=== PATIENT | male | born 1955 | race Caucasian/White ===

== ENCOUNTER 2016-06-25 20:31 | Inpatient (IN) | payer OTHER ==
[~2016-06-25] VITALS: Ht 190.5 cm; Wt 91.1 kg
[2016-06-25] MEDS ORDERED: LOSARTAN POTAS100 MG PO (20:44)
[2016-06-25] MEDS ORDERED: SPIRIVA1 INHALATI IH (20:44)
[2016-06-25] MEDS ORDERED: QUINAPRIL HCL10 MG PO (20:44)
[2016-06-25] MEDS ORDERED: OMEPRAZOLE20 MG PO (20:57)
[2016-06-25] MEDS ORDERED: ALLER-TEC10 MG PO (20:57)
[2016-06-25] MEDS ORDERED: SYMBICORT60 INHALAT IH (20:58)
[2016-06-25] MEDS ORDERED: COMBIVENT RESPIM4 GM IH (20:58)
[2016-06-26] VITALS (7 sets, daily range): BP systolic 120–192; BP diastolic 71–107
[2016-06-26 00:35] LABS: EOSINOPHIL (%) 0 % (0-5); HEMATOCRIT 39.8 % (38.0-50.0); IMMATURE GRANULOCYTE (%) 0.6 % (0.0-0.7); IMMATURE GRANULOCYTE COUNT 0.8 K/uL; LYMPHOCYTE COUNT 0.7 K/uL (1.0-2.8); MCH 31.3 PG (29.0-34.0); MCHC 34.2 G/DL (30.0-36.0); MCV 91.7 FL (86-99); MONOCYTE (%) 5.7 % (3-12); MONOCYTE COUNT 0.8 K/uL (0-0.8); NEUTROPHIL (%) 89.1 % (45-76); NEUTROPHIL COUNT 12.9 K/uL (1.8-6.4); PLATELET COUNT 242 K/uL (156-360); RBC DIS.WIDTH-CV 12.4 % (11.8-14.6); RBC DIS.WIDTH-SD 40.6 % (39-53); RED BLOOD COUNT 4.34 M/uL (4.00-5.50); WHITE BLOOD COUNT 14.5 K/uL (4.1-10.2)
[2016-06-26 00:45] LABS: CHLORIDE 94 mEq/L (99-109); POTASSIUM 5.1 mEq/L (3.7-5.4); SODIUM 123 mEq/L (136-147)
[2016-06-26 00:47] LABS: GLUCOSE 121 mg/dL (70-99)
[2016-06-26 00:48] LABS: BASE EXCESS -8.9 mEq/L (-3 to +3); BICARBONATE 19.2 mEq/L (22-26); CARBOXY HGB 1.7 % (0-5); COMMENTS - BLOOD GASES C+A+; DEVICE NC; METHEMOGLOBIN 1.5 % (0-1.5); O2 FLOW 4 L/MIN; PCO2 49 mm Hg (35-45); PO2 108 mm Hg (80-100); SITE RR; TOTAL RESP RATE 16 resp/min
[2016-06-26 00:48] LABS: ANION GAP 11 MEQ/L (2-14)
[2016-06-26 00:49] LABS: TOTAL BILIRUBIN 0.4 mg/dL (0.0-1.0)
[2016-06-26 00:50] LABS: SERUM ETHYL ALCOHOL 125 mg/dL
[2016-06-26 00:51] LABS: ALKALINE PHOSPHATASE 95 IU/L (3-129); GFR ESTIMATE (CALCULATED) > 59 mL/min/
[2016-06-26 00:52] LABS: UREA NITROGEN (BUN) 11 mg/dL (9-23)
[2016-06-26 02:09] LABS: BASE EXCESS -9.7 mEq/L (-3 to +3); CARBOXY HGB 1.8 % (0-5); COMMENTS - BLOOD GASES C+A+; METHEMOGLOBIN 1.7 % (0-1.5); PCO2 45 mm Hg (35-45); PO2 94 mm Hg (80-100); SITE LR; pH 7.21 (7.35-7.45)
[2016-06-26 02:10] LABS: DEVICE NC; O2 FLOW 1 L/MIN; TOTAL RESP RATE 18 resp/min
[2016-06-26 02:27] LABS: TROP-I INTERPRETATION NEGATIVE; TROPONIN-I 0.02 ng/mL (0.0-0.30)
[2016-06-26 05:49] LABS: BASE EXCESS -9.7 mEq/L (-3 to +3); CARBOXY HGB 2.1 % (0-5); METHEMOGLOBIN 1.7 % (0-1.5); PCO2 45 mm Hg (35-45)
[2016-06-26 05:50] LABS: COMMENTS - BLOOD GASES A+C+; DEVICE NC; O2 FLOW 1 L/MIN; PO2 75 mm Hg (80-100); SITE LR
[2016-06-26 05:51] LABS: pH 7.21 (7.35-7.45)
[2016-06-26 09:29] LABS: TROP-I INTERPRETATION NEGATIVE; TROPONIN-I < 0.01 ng/mL (0.0-0.30)
[2016-06-26 10:07] LABS: HEMATOCRIT 38.1 % (38.0-50.0); MCH 31.9 PG (29.0-34.0); MCHC 34.1 G/DL (30.0-36.0); MCV 93.6 FL (86-99); MEAN PLAT.VOLUME 9.2 uM^3 (9.0-12.4); PLATELET COUNT 182 K/uL (156-360); RBC DIS.WIDTH-CV 12.8 % (11.8-14.6); RED BLOOD COUNT 4.07 M/uL (4.00-5.50); WHITE BLOOD COUNT 10.4 K/uL (4.1-10.2)
[2016-06-26 10:31] LABS: ALKALINE PHOSPHATASE 92 IU/L (3-129); ANION GAP 12 MEQ/L (2-14); CHLORIDE 95 MEQ/L (99-109); GFR ESTIMATE (CALCULATED) > 59 mL/min/; GLUCOSE 122 mg/dL (70-99); POTASSIUM 5.3 MEQ/L (3.7-5.4); SAMPLE HEMOLYSIS CHECK 0; SAMPLE ICTERIC CHECK 0; SAMPLE LIPEMIA CHECK 0; SODIUM 125 MEQ/L (136-147); TOTAL BILIRUBIN 0.8 MG/DL (0.0-1.0); UREA NITROGEN (BUN) 13 mg/dL (9-23)
[2016-06-26 15:46] LABS: INTER. NORMALIZED RATIO 1.1; PROTHROMBIN TIME 11.1 (9.2-11.2); PTT 29.4 (25-32)
[2016-06-27] VITALS (9 sets, daily range): BP systolic 96–138; BP diastolic 57–94
[2016-06-27 08:42] LABS: HEMATOCRIT 38.4 % (38.0-50.0); MCH 31.3 PG (29.0-34.0); MCHC 32.8 G/DL (30.0-36.0); MCV 95.3 FL (86-99); PLATELET COUNT 186 K/uL (156-360); RBC DIS.WIDTH-CV 12.8 % (11.8-14.6); RBC DIS.WIDTH-SD 44.4 % (39-53); RED BLOOD COUNT 4.03 M/uL (4.00-5.50); WHITE BLOOD COUNT 13.2 K/uL (4.1-10.2)
[2016-06-27 15:11] LABS: ANION GAP 11 MEQ/L (2-14); CHLORIDE 98 MEQ/L (99-109); GFR ESTIMATE (CALCULATED) > 59 mL/min/; GLUCOSE 110 mg/dL (70-99); POTASSIUM 5.7 MEQ/L (3.7-5.4); SAMPLE HEMOLYSIS CHECK 0; SAMPLE ICTERIC CHECK 0; SAMPLE LIPEMIA CHECK 0; SODIUM 128 MEQ/L (136-147); UREA NITROGEN (BUN) 14 mg/dL (9-23)
[2016-06-28] VITALS (23 sets, daily range): BP systolic 68–147; BP diastolic 51–98
[2016-06-28 02:43] LABS: BASE EXCESS -5.1 mEq/L (-3 to +3); BICARBONATE 24.3 mEq/L (22-26); CARBOXY HGB 2.7 % (0-5); PCO2 65 mm Hg (35-45); PO2 67 mm Hg (80-100); SITE RR; pH 7.18 (7.35-7.45)
[2016-06-28 02:44] LABS: COMMENTS - BLOOD GASES C+; DEVICE NC; O2 FLOW 4 L/MIN; TOTAL RESP RATE 26 resp/min
[2016-06-28 03:59] LABS: BASE EXCESS -5.7 mEq/L (-3 to +3); BICARBONATE 22.2 mEq/L (22-26); CARBOXY HGB 2.2 % (0-5); METHEMOGLOBIN 2.2 % (0-1.5)
[2016-06-28 04:00] LABS: COMMENTS - BLOOD GASES C+A+; DEVICE VENTILATOR; FI02 100 %; MECHANICAL RATE 18 resp/min; MODE A/C; PCO2 53 mm Hg (35-45); PEEP 5 CM/H20; PO2 483 mm Hg (80-100); SITE RR; TIDAL VOLUME 550 ML; TOTAL RESP RATE 18 resp/min; pH 7.23 (7.35-7.45)
[2016-06-28 04:03] LABS: ADD MIUA? YES; BILIRUBIN NEGATIVE; BLOOD SMALL; COLOR YELLOW ((YELLOW)); GLUCOSE (STRIP) NEGATIVE; KETONES 15; LEUKOCYTES NEGATIVE; NITRITE NEGATIVE; PH, URINE 5.5 (5-8); PROTEIN (STRIP) TRACE; SPECIFIC GRAVITY 1.018 (1.000-1.030); UROBILINOGEN 0.2 MG/DL (0.2-1.0)
[2016-06-28 04:26] LABS: BACTERIA RARE; CASTS NONE SEEN /LPF; CRYSTALS NONE SEEN; EPITHELIAL CELLS RARE; MUCUS NONE SEEN; RED BLOOD CELLS 0-5 /HPF (0-5); UCUL ADDED? NO; WHITE BLOOD CELLS 0-5 /HPF (0-5)
[2016-06-28 05:10] LABS: METH RESISTANT S AUREUS PCR NEGATIVE (NEGATIVE)
[2016-06-28 05:13] LABS: PROBE CHECK PASS; SPECIMEN PROCESSING CONTROL PASS
[2016-06-28 05:43] LABS: HEMATOCRIT 33.2 % (38.0-50.0); MCH 31.2 PG (29.0-34.0); MCHC 31.9 G/DL (30.0-36.0); MCV 97.6 FL (86-99); MEAN PLAT.VOLUME 8.8 uM^3 (9.0-12.4); PLATELET COUNT 157 K/uL (156-360); RBC DIS.WIDTH-CV 12.9 % (11.8-14.6); RBC DIS.WIDTH-SD 45.7 % (39-53)
[2016-06-28 05:48] LABS: WHITE BLOOD COUNT 6.8 K/uL (4.1-10.2)
[2016-06-28 05:57] LABS: MAGNESIUM 1.8 mg/dl (1.3-2.7); TRIGLYCERIDES 98 MG/DL (Normal: <150)
[2016-06-28 06:35] LABS: CREATINE KINASE 1100 IU/L (1-294)
[2016-06-28 07:38] LABS: ANION GAP 8 MEQ/L (2-14); CHLORIDE 101 MEQ/L (99-109); GFR ESTIMATE (CALCULATED) > 59 mL/min/; GLUCOSE 106 mg/dL (70-99); POTASSIUM 5.6 MEQ/L (3.7-5.4); SODIUM 131 MEQ/L (136-147); UREA NITROGEN (BUN) 15 mg/dL (9-23)
[2016-06-28 07:56] LABS: ALKALINE PHOSPHATASE 61 IU/L (3-129); TOTAL BILIRUBIN 0.6 MG/DL (0.0-1.0)
[2016-06-29] VITALS (21 sets, daily range): BP systolic 88–147; BP diastolic 57–91
[2016-06-29 05:32] LABS: BASE EXCESS -5.1 mEq/L (-3 to +3); BICARBONATE 20.6 mEq/L (22-26); CARBOXY HGB 1.7 % (0-5); COMMENTS - BLOOD GASES C+A+; DEVICE VENTILATOR; FI02 30 %; MECHANICAL RATE 14 resp/min; METHEMOGLOBIN 1.9 % (0-1.5); MODE A/C; PCO2 40 mm Hg (35-45); PO2 76 mm Hg (80-100); SITE RR; TOTAL RESP RATE 15 resp/min; pH 7.32 (7.35-7.45)
[2016-06-29 05:33] LABS: PEEP 5 CM/H20; TIDAL VOLUME 550 ML
[2016-06-29 06:18] LABS: ANION GAP 5 MEQ/L (2-14); CHLORIDE 108 MEQ/L (99-109); CREATINE KINASE 421 IU/L (1-294); GFR ESTIMATE (CALCULATED) > 59 mL/min/; GLUCOSE 96 mg/dL (70-99); MAGNESIUM 1.7 mg/dl (1.3-2.7); SAMPLE HEMOLYSIS CHECK 0; SAMPLE ICTERIC CHECK 0; SAMPLE LIPEMIA CHECK 0; SODIUM 134 MEQ/L (136-147); UREA NITROGEN (BUN) 12 mg/dL (9-23)
[2016-06-29 06:19] LABS: POTASSIUM 4.2 MEQ/L (3.7-5.4)
[2016-06-29 07:14] LABS: HEMATOCRIT 29.4 % (38.0-50.0); PLATELET COUNT 159 K/uL (156-360); RBC DIS.WIDTH-CV 13.4 % (11.8-14.6); RED BLOOD COUNT 3.03 M/uL (4.00-5.50)
[2016-06-29 16:23] LABS: ANION GAP 6 MEQ/L (2-14); CHLORIDE 110 MEQ/L (99-109); GFR ESTIMATE (CALCULATED) > 59 mL/min/; GLUCOSE 135 mg/dL (70-99); MAGNESIUM 1.6 mg/dl (1.3-2.7); POTASSIUM 4.4 MEQ/L (3.7-5.4); SAMPLE HEMOLYSIS CHECK 0; SAMPLE ICTERIC CHECK 0; SAMPLE LIPEMIA CHECK 0; SODIUM 136 MEQ/L (136-147); UREA NITROGEN (BUN) 10 mg/dL (9-23)
[2016-06-30] VITALS (24 sets, daily range): BP systolic 108–171; BP diastolic 71–101
[2016-06-30 05:34] LABS: HEMATOCRIT 31.3 % (38.0-50.0); MCH 31.1 PG (29.0-34.0); MCHC 32.3 G/DL (30.0-36.0); MCV 96.3 FL (86-99); MEAN PLAT.VOLUME 9.1 uM^3 (9.0-12.4); PLATELET COUNT 192 K/uL (156-360); RBC DIS.WIDTH-CV 13.4 % (11.8-14.6); RBC DIS.WIDTH-SD 47.4 % (39-53); RED BLOOD COUNT 3.25 M/uL (4.00-5.50); WHITE BLOOD COUNT 5.1 K/uL (4.1-10.2)
[2016-06-30 06:07] LABS: ANION GAP 8 MEQ/L (2-14); CHLORIDE 108 MEQ/L (99-109); CREATINE KINASE 196 IU/L (1-294); GFR ESTIMATE (CALCULATED) > 59 mL/min/; GLUCOSE 162 mg/dL (70-99); MAGNESIUM 2.6 mg/dl (1.3-2.7); POTASSIUM 4.6 MEQ/L (3.7-5.4); SAMPLE HEMOLYSIS CHECK 0; SAMPLE ICTERIC CHECK 0; SAMPLE LIPEMIA CHECK 0; SODIUM 136 MEQ/L (136-147); UREA NITROGEN (BUN) 11 mg/dL (9-23)
[2016-06-30 12:11] LABS: POINT-OF-CARE METER ID UU14162636
[2016-06-30 16:19] LABS: ANION GAP 5 MEQ/L (2-14); CHLORIDE 108 MEQ/L (99-109); GFR ESTIMATE (CALCULATED) > 59 mL/min/; GLUCOSE 170 mg/dL (70-99); MAGNESIUM 2.5 mg/dl (1.3-2.7); POTASSIUM 4.8 MEQ/L (3.7-5.4); SAMPLE HEMOLYSIS CHECK 0; SAMPLE ICTERIC CHECK 0; SAMPLE LIPEMIA CHECK 0; SODIUM 136 MEQ/L (136-147); UREA NITROGEN (BUN) 12 mg/dL (9-23)
[2016-06-30 19:00] LABS: POINT-OF-CARE METER ID UU13113803
[2016-06-30 23:42] LABS: POINT-OF-CARE METER ID UU14162636
[2016-07-01] VITALS (24 sets, daily range): BP systolic 112–194; BP diastolic 75–106
[2016-07-01 05:44] LABS: MCH 30.9 PG (29.0-34.0); MCHC 31.9 G/DL (30.0-36.0); MCV 96.9 FL (86-99); MEAN PLAT.VOLUME 9.2 uM^3 (9.0-12.4); PLATELET COUNT 216 K/uL (156-360); RBC DIS.WIDTH-CV 13.5 % (11.8-14.6); WHITE BLOOD COUNT 4.3 K/uL (4.1-10.2)
[2016-07-01 05:54] LABS: POINT-OF-CARE METER ID UU13113748
[2016-07-01 06:04] LABS: ANION GAP 4 MEQ/L (2-14); CHLORIDE 108 MEQ/L (99-109); CREATINE KINASE 78 IU/L (1-294); GFR ESTIMATE (CALCULATED) > 59 mL/min/; GLUCOSE 150 mg/dL (70-99); MAGNESIUM 2.4 mg/dl (1.3-2.7); POTASSIUM 4.6 MEQ/L (3.7-5.4); SAMPLE HEMOLYSIS CHECK 0; SAMPLE ICTERIC CHECK 0; SAMPLE LIPEMIA CHECK 0; SODIUM 138 MEQ/L (136-147); UREA NITROGEN (BUN) 13 mg/dL (9-23)
[2016-07-01 12:40] LABS: POINT-OF-CARE METER ID UU13113748
[2016-07-01 17:31] LABS: POINT-OF-CARE METER ID UU13113748
[2016-07-02] VITALS (25 sets, daily range): BP systolic 82–174; BP diastolic 60–100
[2016-07-02 00:11] LABS: POINT-OF-CARE METER ID UU13113748
[2016-07-02 05:55] LABS: POINT-OF-CARE METER ID UU14174217
[2016-07-02 06:30] LABS: ANION GAP 7 MEQ/L (2-14); CHLORIDE 107 MEQ/L (99-109); CREATINE KINASE 37 IU/L (1-294); GFR ESTIMATE (CALCULATED) > 59 mL/min/; GLUCOSE 169 mg/dL (70-99); MAGNESIUM 2.3 mg/dl (1.3-2.7); SAMPLE HEMOLYSIS CHECK 0; SAMPLE ICTERIC CHECK 0; SAMPLE LIPEMIA CHECK 0; SODIUM 141 MEQ/L (136-147); UREA NITROGEN (BUN) 19 mg/dL (9-23)
[2016-07-02 06:35] LABS: HEMATOCRIT 31.4 % (38.0-50.0); MCHC 31.8 G/DL (30.0-36.0); MCV 97.2 FL (86-99); MEAN PLAT.VOLUME 9.5 uM^3 (9.0-12.4); PLATELET COUNT 236 K/uL (156-360); RBC DIS.WIDTH-CV 13.4 % (11.8-14.6); RBC DIS.WIDTH-SD 47.8 % (39-53); RED BLOOD COUNT 3.23 M/uL (4.00-5.50)
[2016-07-02 06:36] LABS: WHITE BLOOD COUNT 5.6 K/uL (4.1-10.2)
[2016-07-02 06:51] LABS: Estimated Average Glucose 123 mg/dL (70-123); HEMOGLOBIN A1c (GLYCOHEMOGLOB) 5.9 % HGB (Below 5.7)
[2016-07-02 12:25] LABS: POINT-OF-CARE METER ID UU14174217
[2016-07-02 17:17] LABS: POINT-OF-CARE METER ID UU14174217
[2016-07-03] VITALS (24 sets, daily range): BP systolic 109–166; BP diastolic 71–96
[2016-07-03 01:11] LABS: POINT-OF-CARE METER ID UU14174217
[2016-07-03 08:38] LABS: DELETE MACHINE DIFF? YES
[2016-07-03 08:56] LABS: ANION GAP 6 MEQ/L (2-14); CHLORIDE 106 MEQ/L (99-109); GFR ESTIMATE (CALCULATED) > 59 mL/min/; GLUCOSE 236 mg/dL (70-99); MAGNESIUM 2.4 mg/dl (1.3-2.7); POTASSIUM 5.2 MEQ/L (3.7-5.4); SAMPLE HEMOLYSIS CHECK 0; SAMPLE ICTERIC CHECK 0; SAMPLE LIPEMIA CHECK 0; SODIUM 139 MEQ/L (136-147); UREA NITROGEN (BUN) 26 mg/dL (9-23)
[2016-07-03 08:57] LABS: CREATINE KINASE 204 IU/L (1-294)
[2016-07-03 09:11] LABS: ABS NEUTROPHIL COUNT 7.98; HEMATOCRIT 31.9 % (38.0-50.0); MCH 30.1 PG (29.0-34.0); MCHC 31.3 G/DL (30.0-36.0); MCV 96.1 FL (86-99); MEAN PLAT.VOLUME 9.6 uM^3 (9.0-12.4); PLAT.SUFFICIENCY ADEQUATE; PLATELET COUNT 277 K/uL (156-360); POLYCHROMASIA OCC; RBC DIS.WIDTH-CV 13.7 % (11.8-14.6); RBC DIS.WIDTH-SD 47.8 % (39-53); RED BLOOD COUNT 3.32 M/uL (4.00-5.50); USER ID CL
[2016-07-03 09:15] LABS: WHITE BLOOD COUNT 8.2 K/uL (4.1-10.2)
[2016-07-04] VITALS (27 sets, daily range): BP systolic 113–202; BP diastolic 77–127
[2016-07-04 11:30] LABS: POINT-OF-CARE METER ID UU14174217
[2016-07-04 18:05] LABS: POINT-OF-CARE METER ID UU14174217
[2016-07-05] VITALS (27 sets, daily range): BP systolic 103–187; BP diastolic 59–103
[2016-07-05 01:39] LABS: POINT-OF-CARE METER ID UU13113731
[2016-07-05 06:38] LABS: POINT-OF-CARE METER ID UU13113731
[2016-07-05 12:04] LABS: POINT-OF-CARE METER ID UU14162636
[2016-07-05 13:10] LABS: ANION GAP 7 MEQ/L (2-14); CHLORIDE 106 MEQ/L (99-109); MAGNESIUM 2.5 mg/dl (1.3-2.7); POTASSIUM 5.5 MEQ/L (3.7-5.4); SAMPLE HEMOLYSIS CHECK 0; SAMPLE ICTERIC CHECK 0; SAMPLE LIPEMIA CHECK 0; SODIUM 140 MEQ/L (136-147)
[2016-07-05 13:17] LABS: EOSINOPHIL (%) 0 % (0-5); HEMATOCRIT 39.7 % (38.0-50.0); IMMATURE GRANULOCYTE (%) 1.2 % (0.0-0.7); IMMATURE GRANULOCYTE COUNT 0.2 K/uL; LYMPHOCYTE COUNT 0.4 K/uL (1.0-2.8); MCH 31.3 PG (29.0-34.0); MCHC 32.2 G/DL (30.0-36.0); MCV 97.1 FL (86-99); MEAN PLAT.VOLUME 10.3 uM^3 (9.0-12.4); MONOCYTE (%) 5.5 % (3-12); MONOCYTE COUNT 0.8 K/uL (0-0.8); NEUTROPHIL COUNT 12.5 K/uL (1.8-6.4); PLATELET COUNT 287 K/uL (156-360); RBC DIS.WIDTH-CV 14.2 % (11.8-14.6); RBC DIS.WIDTH-SD 50.1 % (39-53)
[2016-07-05 13:19] LABS: GFR ESTIMATE (CALCULATED) > 59 mL/min/; GLUCOSE 160 mg/dL (70-99); UREA NITROGEN (BUN) 37 mg/dL (9-23)
[2016-07-05 13:27] LABS: WHITE BLOOD COUNT 13.8 K/uL (4.1-10.2)
[2016-07-05 13:28] LABS: RED BLOOD COUNT 4.09 M/uL (4.00-5.50)
[2016-07-05 16:03] LABS: BASE EXCESS 4.1 mEq/L (-3 to +3); CARBOXY HGB 2.2 % (0-5); METHEMOGLOBIN 1.4 % (0-1.5); PO2 85 mm Hg (80-100)
[2016-07-05 16:04] LABS: BICARBONATE 29.2 mEq/L (22-26); COMMENTS - BLOOD GASES A+C+; DEVICE 840; FI02 30 %; MODE TC; PCO2 45 mm Hg (35-45); PEEP 5 CM/H20; SITE LR; TOTAL RESP RATE 30 resp/min; pH 7.42 (7.35-7.45)
[2016-07-05 18:11] LABS: POINT-OF-CARE METER ID UU14162636; POINT-OF-CARE USER ID 606021424
[2016-07-06] VITALS (24 sets, daily range): BP systolic 103–150; BP diastolic 65–89
[2016-07-06 00:24] LABS: POINT-OF-CARE METER ID UU13113803
[2016-07-06 06:34] LABS: EOSINOPHIL (%) 0 % (0-5); IMMATURE GRANULOCYTE (%) 1.2 % (0.0-0.7); IMMATURE GRANULOCYTE COUNT 0.2 K/uL; LYMPHOCYTE COUNT 0.9 K/uL (1.0-2.8); MCH 30.2 PG (29.0-34.0); MCHC 31.8 G/DL (30.0-36.0); MCV 95.1 FL (86-99); MONOCYTE (%) 1.1 % (3-12); MONOCYTE COUNT 0.1 K/uL (0-0.8); NEUTROPHIL (%) 90.5 % (45-76); NEUTROPHIL COUNT 11.1 K/uL (1.8-6.4); PLATELET COUNT 275 K/uL (156-360); RBC DIS.WIDTH-SD 48.5 % (39-53); WHITE BLOOD COUNT 12.3 K/uL (4.1-10.2)
[2016-07-06 06:35] LABS: ANION GAP 12 MEQ/L (2-14); CHLORIDE 102 MEQ/L (99-109); CREATINE KINASE 49 IU/L (1-294); GFR ESTIMATE (CALCULATED) > 59 mL/min/; GLUCOSE 176 mg/dL (70-99); MAGNESIUM 2.4 mg/dl (1.3-2.7); POTASSIUM 5.1 MEQ/L (3.7-5.4); SAMPLE HEMOLYSIS CHECK 0; SAMPLE ICTERIC CHECK 0; SAMPLE LIPEMIA CHECK 0; SODIUM 142 MEQ/L (136-147); UREA NITROGEN (BUN) 49 mg/dL (9-23)
[2016-07-06 07:00] LABS: POINT-OF-CARE METER ID UU14162636
[2016-07-06 11:54] LABS: POINT-OF-CARE METER ID UU14162636
[2016-07-06 17:42] LABS: POINT-OF-CARE METER ID UU13113803
[2016-07-07] VITALS (25 sets, daily range): BP systolic 126–176; BP diastolic 80–123
[2016-07-07 00:33] LABS: POINT-OF-CARE METER ID UU14174217
[2016-07-07 05:26] LABS: BASE EXCESS 8.8 mEq/L (-3 to +3); BICARBONATE 35.5 mEq/L (22-26); CARBOXY HGB 2.5 % (0-5); METHEMOGLOBIN 1.9 % (0-1.5); PCO2 56 mm Hg (35-45); PO2 84 mm Hg (80-100); pH 7.41 (7.35-7.45)
[2016-07-07 05:27] LABS: COMMENTS - BLOOD GASES C+; DEVICE NC; O2 FLOW 4 L/MIN; SITE RR; TOTAL RESP RATE 45 resp/min
[2016-07-07 06:40] LABS: POINT-OF-CARE METER ID UU13113748
[2016-07-07 06:42] LABS: ANION GAP 12 MEQ/L (2-14); CHLORIDE 102 MEQ/L (99-109); GFR ESTIMATE (CALCULATED) > 59 mL/min/; GLUCOSE 140 mg/dL (70-99); MAGNESIUM 2.6 mg/dl (1.3-2.7); POTASSIUM 4.7 MEQ/L (3.7-5.4); SAMPLE HEMOLYSIS CHECK 1; SAMPLE ICTERIC CHECK 0; SAMPLE LIPEMIA CHECK 0; SODIUM 145 MEQ/L (136-147); UREA NITROGEN (BUN) 49 mg/dL (9-23)
[2016-07-07 06:43] LABS: CREATINE KINASE 155 IU/L (1-294)
[2016-07-07 09:06] LABS: EOSINOPHIL (%) 0 % (0-5); HEMATOCRIT 42.4 % (38.0-50.0); IMMATURE GRANULOCYTE (%) 1.2 % (0.0-0.7); IMMATURE GRANULOCYTE COUNT 0.3 K/uL; LYMPHOCYTE COUNT 1.6 K/uL (1.0-2.8); MCH 31.2 PG (29.0-34.0); MCHC 32.3 G/DL (30.0-36.0); MCV 96.6 FL (86-99); MEAN PLAT.VOLUME 10.4 uM^3 (9.0-12.4); MONOCYTE (%) 3.6 % (3-12); MONOCYTE COUNT 0.9 K/uL (0-0.8); NEUTROPHIL (%) 88.8 % (45-76); NEUTROPHIL COUNT 21.6 K/uL (1.8-6.4); PLATELET COUNT 343 K/uL (156-360); RBC DIS.WIDTH-CV 14.4 % (11.8-14.6); RBC DIS.WIDTH-SD 49.8 % (39-53); RED BLOOD COUNT 4.39 M/uL (4.00-5.50)
[2016-07-07 09:08] LABS: WHITE BLOOD COUNT 24.3 K/uL (4.1-10.2)
[2016-07-07 09:47] LABS: HEMATOLOGY COMMENT 1 SMEAR COMPATIBLE; PLAT.SUFFICIENCY ADEQUATE
[2016-07-07 11:37] LABS: POINT-OF-CARE METER ID UU13113731
[2016-07-08] VITALS (25 sets, daily range): BP systolic 70–174; BP diastolic 50–106
[2016-07-08 04:42] LABS: BASE EXCESS 6.8 mEq/L (-3 to +3); BICARBONATE 34.1 mEq/L (22-26); CARBOXY HGB 2.3 % (0-5); COMMENTS - BLOOD GASES C+; DEVICE 840; FI02 50 %; MECHANICAL RATE 16 resp/min; MODE AC; PCO2 59 mm Hg (35-45); PEEP 5 CM/H20; PO2 91 mm Hg (80-100); SITE RR; TIDAL VOLUME 500 ML; TOTAL RESP RATE 25 resp/min; pH 7.37 (7.35-7.45)
[2016-07-08 05:54] LABS: C DIFF TOXIN NEGATIVE (NEGATIVE)
[2016-07-08 05:56] LABS: PROBE CHECK PASS; SPECIMEN PROCESSING CONTROL PASS
[2016-07-08 06:04] LABS: HEMATOCRIT 40.8 % (38.0-50.0); MCH 31.4 PG (29.0-34.0); MCHC 31.4 G/DL (30.0-36.0); PLATELET COUNT 274 K/uL (156-360); RBC DIS.WIDTH-CV 14.7 % (11.8-14.6); RBC DIS.WIDTH-SD 52.9 % (39-53); RED BLOOD COUNT 4.08 M/uL (4.00-5.50); WHITE BLOOD COUNT 27.9 K/uL (4.1-10.2)
[2016-07-08 06:28] LABS: EOSINOPHIL (%) 0 % (0-5); IMMATURE GRANULOCYTE (%) 0.5 % (0.0-0.7); IMMATURE GRANULOCYTE COUNT 0.2 K/uL; LYMPHOCYTE COUNT 1.7 K/uL (1.0-2.8); MONOCYTE (%) 3.6 % (3-12); NEUTROPHIL (%) 89.9 % (45-76)
[2016-07-08 06:30] LABS: ANION GAP 11 MEQ/L (2-14); CHLORIDE 106 MEQ/L (99-109); CREATINE KINASE 78 IU/L (1-294); GFR ESTIMATE (CALCULATED) > 59 mL/min/; GLUCOSE 161 mg/dL (70-99); MAGNESIUM 2.7 mg/dl (1.3-2.7); POTASSIUM 4.4 MEQ/L (3.7-5.4); SAMPLE HEMOLYSIS CHECK 0; SAMPLE ICTERIC CHECK 0; SAMPLE LIPEMIA CHECK 0; SODIUM 151 MEQ/L (136-147); UREA NITROGEN (BUN) 51 mg/dL (9-23)
[2016-07-08 07:37] LABS: HEMATOLOGY COMMENT 1 SMEAR COMPATIBLE; PLAT.SUFFICIENCY ADEQUATE
[2016-07-08 12:44] LABS: POINT-OF-CARE METER ID UU13113803
[2016-07-09] VITALS (20 sets, daily range): BP systolic 97–175; BP diastolic 57–90
[2016-07-09 01:13] LABS: POINT-OF-CARE METER ID UU14174217; POINT-OF-CARE USER ID PHATLC
[2016-07-09 06:05] LABS: ANION GAP 6 MEQ/L (2-14); CHLORIDE 110 MEQ/L (99-109); CREATINE KINASE 89 IU/L (1-294); GFR ESTIMATE (CALCULATED) > 59 mL/min/; GLUCOSE 142 mg/dL (70-99); MAGNESIUM 2.8 mg/dl (1.3-2.7); POTASSIUM 4.2 MEQ/L (3.7-5.4); SAMPLE HEMOLYSIS CHECK 0; SAMPLE ICTERIC CHECK 0; SAMPLE LIPEMIA CHECK 0; SODIUM 150 MEQ/L (136-147); UREA NITROGEN (BUN) 46 mg/dL (9-23)
[2016-07-09 06:25] LABS: HEMATOCRIT 32.4 % (38.0-50.0); MCH 31.2 PG (29.0-34.0); MCHC 31.5 G/DL (30.0-36.0); MCV 99.1 FL (86-99); MEAN PLAT.VOLUME 11.1 uM^3 (9.0-12.4); NRBC (%) 0.9 /100 WBC (0-0); PLATELET COUNT 236 K/uL (156-360); RBC DIS.WIDTH-CV 14.9 % (11.8-14.6); RBC DIS.WIDTH-SD 53.4 % (39-53); RED BLOOD COUNT 3.27 M/uL (4.00-5.50)
[2016-07-09 06:29] LABS: DELETE MACHINE DIFF? YES; WHITE BLOOD COUNT 11.1 K/uL (4.1-10.2)
[2016-07-09 07:44] LABS: ANISOCYTOSIS OCC; HEMATOLOGY COMMENT 1 CL; MACROCYTES OCC; PLAT.SUFFICIENCY ADEQUATE
[2016-07-09 11:53] LABS: POINT-OF-CARE METER ID UU13113748
[2016-07-09 17:22] LABS: POINT-OF-CARE METER ID UU13113748
[2016-07-10] VITALS: BP 155/86
[2016-07-10 06:01] LABS: EOSINOPHIL (%) 0.2 % (0-5); HEMATOCRIT 38.6 % (38.0-50.0); IMMATURE GRANULOCYTE (%) 0.9 % (0.0-0.7); IMMATURE GRANULOCYTE COUNT 0.1 K/uL; MCHC 30.8 G/DL (30.0-36.0); MCV 100.5 FL (86-99); MEAN PLAT.VOLUME 11.1 uM^3 (9.0-12.4); MONOCYTE (%) 3.5 % (3-12); MONOCYTE COUNT 0.4 K/uL (0-0.8); NEUTROPHIL (%) 86.6 % (45-76); NEUTROPHIL COUNT 10.3 K/uL (1.8-6.4); PLATELET COUNT 243 K/uL (156-360); RBC DIS.WIDTH-CV 14.4 % (11.8-14.6); RBC DIS.WIDTH-SD 52.6 % (39-53); RED BLOOD COUNT 3.84 M/uL (4.00-5.50); WHITE BLOOD COUNT 11.9 K/uL (4.1-10.2)
[2016-07-10 06:31] LABS: ANION GAP 9 MEQ/L (2-14); CHLORIDE 114 MEQ/L (99-109); CREATINE KINASE 121 IU/L (1-294); GFR ESTIMATE (CALCULATED) > 59 mL/min/; MAGNESIUM 2.5 mg/dl (1.3-2.7); POTASSIUM 4.4 MEQ/L (3.7-5.4); SAMPLE HEMOLYSIS CHECK 0; SAMPLE ICTERIC CHECK 0; SAMPLE LIPEMIA CHECK 0; SODIUM 152 MEQ/L (136-147); UREA NITROGEN (BUN) 35 mg/dL (9-23)
[2016-07-10 06:32] LABS: GLUCOSE 102 mg/dL (70-99)
[2016-07-10 08:00] VITALS: BP 182/111
[2016-07-10 08:50] VITALS: BP 166/103
[2016-07-10 12:20] VITALS: BP 162/93
[2016-07-10 16:00] VITALS: BP 173/96
[2016-07-10 20:00] VITALS: BP 187/111
[2016-07-10 21:06] LABS: ANION GAP 11 MEQ/L (2-14); CHLORIDE 112 MEQ/L (99-109); GFR ESTIMATE (CALCULATED) > 59 mL/min/; GLUCOSE 86 mg/dL (70-99); POTASSIUM 4.4 MEQ/L (3.7-5.4); SAMPLE HEMOLYSIS CHECK 1; SAMPLE ICTERIC CHECK 0; SAMPLE LIPEMIA CHECK 0; SODIUM 152 MEQ/L (136-147); UREA NITROGEN (BUN) 30 mg/dL (9-23)
[2016-07-11] VITALS (8 sets, daily range): BP systolic 152–213; BP diastolic 88–117
[2016-07-11 04:51] LABS: EOSINOPHIL (%) 0.3 % (0-5); HEMATOCRIT 38.2 % (38.0-50.0); IMMATURE GRANULOCYTE (%) 1.3 % (0.0-0.7); IMMATURE GRANULOCYTE COUNT 1.5 K/uL; LYMPHOCYTE COUNT 0.4 K/uL (1.0-2.8); MCHC 31.9 G/DL (30.0-36.0); MCV 97.2 FL (86-99); MEAN PLAT.VOLUME 10.7 uM^3 (9.0-12.4); MONOCYTE (%) 10.5 % (3-12); MONOCYTE COUNT 1.3 K/uL (0-0.8); NEUTROPHIL (%) 84.4 % (45-76); NEUTROPHIL COUNT 10.1 K/uL (1.8-6.4); PLATELET COUNT 275 K/uL (156-360); RBC DIS.WIDTH-CV 13.7 % (11.8-14.6); RBC DIS.WIDTH-SD 46.4 % (39-53); RED BLOOD COUNT 3.93 M/uL (4.00-5.50); WHITE BLOOD COUNT 11.9 K/uL (4.1-10.2)
[2016-07-11 05:00] LABS: CHLORIDE 115 mEq/L (99-109); POTASSIUM 3.7 mEq/L (3.7-5.4); SODIUM 151 mEq/L (136-147)
[2016-07-11 05:01] LABS: MAGNESIUM 2.2 mg/dL (1.3-2.7)
[2016-07-11 05:03] LABS: ANION GAP 11 MEQ/L (2-14)
[2016-07-11 05:06] LABS: GFR ESTIMATE (CALCULATED) > 59 mL/min/
[2016-07-11 05:07] LABS: UREA NITROGEN (BUN) 28 mg/dL (9-23)
[2016-07-11 05:08] LABS: CREATINE KINASE 160 IU/L (1-294)
[2016-07-11 05:10] LABS: GLUCOSE 110 mg/dL (70-99)
[2016-07-11] MEDS ORDERED: MORPHINE CON20 MG/M1 PO (11:21)
[2016-07-11] MEDS ORDERED: ATROPINE 1100 DROP/5 SL (11:21)
[2016-07-11] MEDS ORDERED: ATIVAN INTE2 MG/1 ML PO (11:21)
[2016-07-11] MEDS ORDERED: LEVSIN-SL0.125 MG SL (11:22)
[2016-07-11 12:54] LABS: POINT-OF-CARE METER ID UU13113748
== END 2016-07-11 13:43 | disposition hospice, home (50) | DRG 207 ==
LOC: EME → EDBD 20:31 → EME 20:31 → EDOF 06-26 00:07 → 4WEST 06-26 01:48 → EDOF 06-26 01:48 → 4WEST 06-26 01:48 → 4EAST 06-26 01:48 → EDOF 06-26 01:48 → 4EAST 06-26 04:59 → 4WEST 06-28 03:06
PROVIDERS: Anesthesiology; Emergency Medicine; Hospitalist; Internal Medicine; Internal Medicine Critical Care Medicine; Internal Medicine Nephrology; Physician Assistant Medical; Surgery
DX: S22.41XA Multiple fractures of ribs, right side, initial encounter for closed fracture (principal); J96.01 Acute respiratory failure with hypoxia; J96.02 Acute respiratory failure with hypercapnia; F10.231 Alcohol dependence with withdrawal delirium; Y90.6 Blood alcohol level of 120-199 mg/100 ml; E87.1 Hypo-osmolality and hyponatremia; E87.2 Acidosis; K56.69 Other intestinal obstruction; T40.4X5A Adverse effect of other synthetic narcotics, initial encounter; J44.1 Chronic obstructive pulmonary disease with (acute) exacerbation; J44.0 Chronic obstructive pulmonary disease with (acute) lower respiratory infection; J18.9 Pneumonia, unspecified organism; W00.1XXA Fall from stairs and steps due to ice and snow, initial encounter; S00.87XA Other superficial bite of other part of head, initial encounter; W54.0XXA Bitten by dog, initial encounter; Y92.008 Other place in unspecified non-institutional (private) residence as the place of occurrence of the external cause; Y99.8 Other external cause status; I95.9 Hypotension, unspecified; Z66 Do not resuscitate; Z51.5 Encounter for palliative care; G47.33 Obstructive sleep apnea (adult) (pediatric); I10 Essential (primary) hypertension; J45.909 Unspecified asthma, uncomplicated; F41.9 Anxiety disorder, unspecified; K21.9 Gastro-esophageal reflux disease without esophagitis; F43.10 Post-traumatic stress disorder, unspecified; R73.9 Hyperglycemia, unspecified; R91.1 Solitary pulmonary nodule; Z78.1 Physical restraint status; E83.42 Hypomagnesemia; E83.39 Other disorders of phosphorus metabolism; E88.09 Other disorders of plasma-protein metabolism, not elsewhere classified; Z91.19 Patient's noncompliance with other medical treatment and regimen; Z87.891 Personal history of nicotine dependence
CPT/HCPCS: 36600; 70450; 71010; 71020; 71101; 71250; 73030; 74230; 80048; 80048 91; 80053; 80202; 81003; 82550; 82803; 82948; 83036; 83605; 83735; 84100; 84478; 84484; 85002; 85025; 85027; 85610; 85730; 87070; 87077; 87185; 87205; 87493; 87641; 92610 GN; 92611 GN; 93005; 94002; 94003; 94640; 94640 76; 94644; 94645; 94668; 94760; 94799; 97530 GP; 99202; 99281; 99285; G0480; J0330; J0360; J0456; J0696; J1170; J1644; J1815; J1885; J1940; J2060; J2270; J2405; J2543; J2704; J2765; J2920; J2930; J3010; J3370; J3411; J3475; J7030; J7050; J7070; J7120; P9045